=== PATIENT | female | born 1960 | race Caucasian/White ===

== ENCOUNTER 2016-11-23 05:45 | Inpatient (IN) ==
[2016-11-11 09:30] LABS: Basophils % 0.4 % (0.0-0.8); Eosinophils # 0.1 10*3/uL (0.0-0.87); Eosinophils % 1.5 % (0.00-10.9); Hematocrit 38.8 VOL% (35.7-47.0); Hemoglobin 13.3 GM/DL (12.0-16.0); Immature Granulocytes % 0.3 %; Immature Granulocytes Absolute 0.02 #; Lymphocytes # 2.5 10*3/uL (1.4-4.0); Lymphocytes % 32.4 % (21.3-54.2); Mean Corpuscular HGB Conc 34.3 GM/DL (32-36); Mean Corpuscular Hemoglobin 34 PG (27-34); Mean Corpuscular Volume 98.2 FL (87-102); Mean Platelet Volume 8.9 FL (9.6-12.0); Monocytes # 0.5 10*3/uL (0.11-0.8); Monocytes % 5.9 % (1.7-12.7); Neutrophils # 4.7 10*3/uL (1.4-7.4); Neutrophils % 59.5 % (38.7-73.9); Platelet Count 271 T/CUMM (130-400); Red Blood Count 3.95 MC/CUMM (3.8-5.5); Red Cell Distribution Width 14.1 % (9.3-17.3); White Blood Count 7.8 T/CUMM (4-12)
[2016-11-11 09:34] LABS: Apearance,Urine CLEAR (Clear); Bacteria,Urine Occasional /HPF (Few); Bilirubin,Urine Negative (Negative); Blood, Urine Negative (Negative); Glucose,Urine (UA) Negative (Negative); Ketones,Urine Negative (Negative); Nitrite,Urine Negative (Negative); Protein,Urine Negative; RBC,Urine 6 /HPF (0-4); Squamous Epithelial Cell,Urine Occasional /HPF (0-10); Urine Color Yellow (Yellow); Urine Specific Gravity 1.004 (1.001-1.035); Urine Urobilinogen < 2.0 EU/DL (0.2-1.0); WBC,Urine 1 /HPF (0-6)
[2016-11-11 09:53] LABS: Partial Thromboplastin Time 28.2 SECS (0-40)
[2016-11-11 10:00] LABS: Alanine Aminotransferase 72 U/L (13-56); Albumin 3.8 G/DL (3.4-5.0); Alkaline Phosphatase 200 U/L (45-117); Aspartate Amino Transferase 70 U/L (0-37); Bilirubin,Total < 0.39 MG/DL (0.2-1.0); Blood Urea Nitrogen 12 MG/DL (7-18); Calcium 9.1 MG/DL (8.5-10.1); Glucose 112 MG/DL (74-106); Osmolality,Calculated 275.7 MOS/KG (273-304); Potassium 4.6 MMOL/L (3.5-5.1); Sodium 138 MMOL/L (136-145); Total Protein 7.1 G/DL (6.4-8.3)
--- NOTE | 2016-11-11 10:01 | EKG Report ---
Stationary ECG Study [facility] Test Date: 11/11/2016 10:01:49 AM Pat Name: LAWRENCE JEAN BAPTISTE Department: Room: Gender: F Customer Service Driver: LEAH ROWE 11-23-16 : 1960 Requested by: Siddhartha Rowe Order Number: [id number] Reading MD: DAWN HAAS Intervals [place] Rate: 61 P: 22 WI: 106 QRS: 93 QRSD: 104 T: 14 QT: 413 QTc: 417 Interpretive Statements SINUS RHYTHM WITH SHORT WI INTERVAL RIGHT AXIS DEVIATION Electronically Signed On 11-11-16 15:21:05 CDT by DAWN HAAS [email or web address]
--- NOTE | 2016-11-11 11:31 | XRay Report ---
XR chest 2V Date: 11/11/2016 9:10 AM History: Respiratory preoperative evaluation Comparison: None Technique: PA and lateral chest Findings: The heart is normal in size. The lungs appear minimally over expanded with probable minimal chronic scarring. Old healed left rib fractures with degenerative changes. Impression: Minimal overexpansion of lungs which can be seen with mild COPD or deep inspiration. No acute cardiopulmonary pathology identified. Old healed left rib fractures. PROCEDURE INTERPRETED AT [facility] Final Report Signed by: Dr. Sophia Medina
[2016-11-23] MEDS ORDERED: VANCOMYCIN 1,000 MG VIAL ONE (05:53)
[2016-11-23] MEDS ORDERED: SODIUM CHLORIDE 0.9% 100 ML IV ONE (05:54)
[2016-11-23] MEDS ORDERED: ceFAZolin 1,000 MG VIAL ONE (05:54)
[2016-11-23] MEDS ORDERED: VANCOMYCIN INJ 1,000 MG in SODIUM CHLORIDE 0.9% 250 ML IV ONE (06:00)
[2016-11-23] MEDS ORDERED: ROPIVACAINE 0.5% 30 ML VIAL ONE (06:34)
[2016-11-23] MEDS: LACTATED RINGERS 1,000 ML IV SCH ×2 (06:53→12:26)
--- NOTE | 2016-11-23 07:19 | History and Physical Update ---
History and Physical Update - History and Physical H&P was reviewed, the patient examined and there: are no changes in the patients condition since last H&P was completed.
[2016-11-23] MEDS ORDERED: MAGNESIUM HYDROXIDE SUSP 30 ML UDCUP PO PRN (09:16)
[2016-11-23] MEDS ORDERED: ONDANSETRON 4 MG/2 ML VIAL IV PRN (09:16)
[2016-11-23] MEDS ORDERED: NALOXONE 0.4 MG/ML VIAL IV PRN (09:16)
[2016-11-23] MEDS ORDERED: HYDROmorphone 2 MG/1 ML VIAL IV PRN (09:16)
[2016-11-23] MEDS ORDERED: PROMETHAZINE 25 MG/1 ML VIAL IM PRN (09:16)
--- NOTE | 2016-11-23 09:22 | Anesthesia Post-Op ---
Anesthesia Post OP - Post Ansesthetic Evaluation Patient seen in post op: Yes Resp: within normal limits CV: within normal limits Mental: within normal limits Temp: within normal limits Mnud-Bd-Okmrpomgj: within normal limits Nausea and Vomiting: within normal limits Pain: within normal limits
[2016-11-23] MEDS ORDERED: HYDROmorphone PCA 30 MG/30 ML SYRINGE IV SCH (09:30)
--- NOTE | 2016-11-23 10:13 | XRay Report ---
XR shoulder 1V RT Indication: Shoulder arthroplasty Comparison: 19 August 2016 Findings: Right shoulder arthroplasty been performed. The component alignment and positioning appear within normal limits. No new fractures are seen. Impression: Shoulder arthroplasty with expected postoperative appearance. PROCEDURE INTERPRETED AT [facility] DEPARTMENT OF RADIOLOGY Final Report Signed by: Dr. Rip Palomares
[2016-11-23] MEDS ORDERED: PROPOFOL 200 MG/20 ML VIAL IV ONE (11:27)
[2016-11-23] MEDS ORDERED: fentaNYL 100 MCG/2 ML VIAL ONE (11:28)
[2016-11-23] MEDS ORDERED: MIDAZOLAM 2 MG/2 ML VIAL ONE (11:28)
[2016-11-23] MEDS ORDERED: SEVOFLURANE 1 UNIT/15 MINUTE INH ONE (11:28)
[2016-11-23] MEDS ORDERED: KETOROLAC 30 MG/1 ML VIAL ONE (11:29)
[2016-11-23] MEDS ORDERED: GLYCOPYRROLATE 0.4 MG/2 ML VIAL ONE (11:29)
[2016-11-23] MEDS ORDERED: ePHEDrine 50 MG/ML AMP ONE (11:29)
[2016-11-23] MEDS ORDERED: PHENYLEPHRINE 50 MG/5 ML VIAL ONE (11:29)
[2016-11-23] MEDS ORDERED: NEOSTIGMINE 10 MG/10 ML VIAL ONE (11:29)
[2016-11-23] MEDS ORDERED: DEXAMETHASONE 10 MG/1 ML VIAL ONE (11:29)
[2016-11-23] MEDS ORDERED: ROCURONIUM 100 MG/10 ML VIAL IV ONE (11:30)
[2016-11-23] MEDS ORDERED: SODIUM CHLORIDE 0.9% 250 ML IV ONE (11:30)
[2016-11-23] MEDS ORDERED: ACETAMINOPHEN 1,000 MG/100 ML VIAL IV ONE (11:30)
--- NOTE | 2016-11-23 11:30 | Orthopedic Progress Note ---
Orthopedics - Subjective Interval history: Has good block comfortable discussed expect pain medicines to be needed tonight will discuss discharge plan in a.m. Exam - Constitutional Vitals: Period Temp Pulse Resp BP Sys/Jim Pulse Ox Last 24 Hr 97.0 F-98.1 F 58-68 16-20 103-132/53-91 96-100 Results - Labs CBC & BMP: 11/11/16 09:18 11/11/16 09:18
--- NOTE | 2016-11-23 18:23 | Operative Note ---
DATE: 11/23/2016 PREOPERATIVE DIAGNOSIS: NONUNION, RIGHT PROXIMAL HUMERUS FRACTURE. POSTOPERATIVE DIAGNOSIS: NONUNION, RIGHT PROXIMAL HUMERUS FRACTURE. OPERATIVE PROCEDURE: REVERSE TOTAL SHOULDER, RIGHT. SURGEON: Siddhartha Valles Jr., MD. FOUNTAIN BRUSH ASSEMBLER: Dr. Walker. ANESTHESIA: General. INDICATION: A 55-year-old white female with a proximal humerus fracture she sustained several months ago. She has gone to nonunion, had resorption of the humeral head, and I have discussed with her tr eatment options including indications for arthroplasty. She presents today for elective procedure. OPERATIVE PROCEDURE: The patient was taken to the operating room and under general anesthetic, posit ioned in a beach chair position. The right upper extremity was prepped and draped in usual sterile m ramesh. She received vancomycin and Ancef preoperatively. An incision was made over the deltopectora l interval. Deltopectoral approach was performed to the proximal humerus. The capsule and subscap w ere taken off of the deformed proximal humerus, intact for later repair. The biceps tendon was sacri ficed. The nonunion site was easily visualized and taken down. The head was resected and glenoid ex posed. The Metaglene was secured after proper preparation to the glenoid using three screws and a 38 mm eccentric glenosphere placed. The proximal humerus was then prepared for the humeral prosthesis, ultimately selecting a size 10 with a 38 plus 3 cup. Trial reduction of selecting these components and permanent implants were cemented into place. Again, the +3 was trialed and ultimately selected a nd placed on the component. The shoulder was then relocated and closed in a standard fashion after i rrigation using #0 Ethibond for the subscap capsular incision. The deltopectoral interval closed wit h 0-Vicryl, 2-0 Vicryl subcutaneous layers, and annalee for skin. She was placed in an abduction pil low sling and taken to recovery room in stable condition.
[2016-11-23] MEDS ORDERED: VENLAFAXINE XR 75 MG CAPSULE PO SCH (21:00)
[2016-11-23] MEDS: GABAPENTIN 100 MG CAPSULE PO SCH (21:19)
[2016-11-23] MEDS: NIACIN ER 500 MG TABLET PO SCH (21:19)
--- NOTE | 2016-11-24 08:37 | Orthopedic Progress Note ---
Orthopedics - Subjective Interval history: Comfortable neurovascular intact will change dressing today. VASCULAR PHYSICIAN wants to go home later if doing well on p.o. we will discharge to follow-up in 10 days Exam - Constitutional Vitals: Period Temp Pulse Resp BP Sys/Jim Pulse Ox Last 24 Hr 97.0 F-98.4 F 58-116 16-20 97-140/51-101 94-100 Results - Labs CBC & BMP: 11/11/16 09:18 11/11/16 09:18
--- NOTE | 2016-11-24 08:40 | Discharge Summary ---
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 Status: Acute Discharge Plan - Discharge Data Disposition: Disch To Home/Self Care Condition at Discharge: Stable Discharge Diet: advance to your usual diet Activity: no lifting (Abduction pillow sling elbow range of motion daily no active shoulder motion) Hygiene: may shower, keep area(s) dry Weight Bearing at Discharge: weight bear as tolerated Driving: not until seen by doctor - Discharge Medications New HYDROcodone/ACETAMIN 7.5-325 [[place] 7.5-325] 1 tablet PO Q4H PRN #30 tablet PRN Reason: Pain Moderate (4-7) Continue Ascorbic Acid [Vitamin C] 1,000 mg PO DAILY Venlafaxine HCl [Effexor XR] 150 mg PO BEDTIME Niacin ER [Niaspan] 500 mg PO BID Multivitamin [Multivitamins] 1 each PO DAILY Cholecalciferol (Vitamin D3) [Vitamin D3 Chew Tab] 1,000 unit PO DAILY Gabapentin 100 mg PO BID Estradiol Tab [Estrace Tab] 2 mg PO DAILY Aspirin Tab 325 mg PO DAILY - Follow Up or Referral - Forms/Instructions Additional Discharge Instructions: Discharge to home continue home medications [place] 7.5 #30 no refills mobilize as tolerated abduction pillow sling on right elbow range of motion and digital motion encouraged no active range of motion right shoulder may remove for bathing hygiene purposes only the sling. Follow- up approximately 10 days Exam - Constitutional Vitals: Period Temp Pulse Resp BP Sys/Jim Pulse Ox Last 24 Hr 97.0 F-98.4 F 58-116 16-20 97-140/51-101 94-100 DS: Provider Primary care physician: Yeni Coffman MD Discharging clinician: Siddhartha Valles Jr., MD
[2016-11-24] MEDS: GABAPENTIN 100 MG CAPSULE PO SCH (08:58)
[2016-11-24] MEDS ORDERED: ESTRADIOL 2 MG TABLET PO SCH (09:00)
[2016-11-24] MEDS ORDERED: ASCORBIC ACID 500 MG TABLET PO SCH (09:00)
[2016-11-24] MEDS ORDERED: CHOLECALCIFEROL 1,000 UNIT TABLET PO SCH (09:00)
[2016-11-24] MEDS ORDERED: ASPIRIN 325 MG TABLET PO SCH (09:00)
[2016-11-24] MEDS ORDERED: MULTIVITAMIN (CENTRUM) TABLET PO SCH (09:00)
[2016-11-24] MEDS: NIACIN ER 500 MG TABLET PO SCH (09:01)
[2016-11-24 11:12] VITALS: BP 144/82
--- NOTE | 2016-11-28 17:15 | Pathology Report from [facility] ---
[facility] [place] # : [id number] PATIENT NAME : Lawrence Jean Baptiste ORDERING DR : MIKE ROWE JR, MD CLINICAL HX: Nonuntion RT proximal humerus POST-OP DX: Same SPECIMEN INFO: RT shoulder bone & tissue GROSS DESCRIPTION: The specimen is received in formalin labeled with the patients name and consists of four fragments of humeral head, bone and tissue with the humeral head measuring approximately 3.8 x 4.0 cm x up to 1.5 cm. The cut surface is smooth and huber. The fractured surface is hemorrhagic shaggy and jagged with three portions of bone measuring 4.8 x 3.5 x 1.0 cm. Charging Board Operator tissue submitted in one cassette following decalcification. DIAGNOSIS FOR LAWRENCE JEAN BAPTISTE: RIGHT SHOULDER BONE & TISSUE, REPLACEMENT: Fragments of bone and cartilage with adjacent hemorrhage, consistent with fracture. No evidence of malignancy by CD138 immunostain. COLLECTED DATE: 11/23/2016 [facility] REPORT DATE: 11/28/2016 ELECTRONICALLY SIGNED BY: Tisha Cuellar M.D. 11/28/2016 - 13:21:07 RAPHAEL
== END 2016-11-24 11:30 | disposition home or self-care (01) | DRG 483 ==
LOC: N.OR 05:46 → N.SDSINP 05:46 → EDSTATUS 09:00 → N.SDSINP 10:14 → N.3E 10:14 → EDSDCBED 10:14 → N.3E 11-24 08:37 → UNDODISIN 11-24 11:30
PROVIDERS: ADMIT Orthopaedic Surgery; ATTEND Orthopaedic Surgery